=== PATIENT | male | born 1980 | race Caucasian/White ===

== ENCOUNTER 2016-06-01 21:17 | Emergency (ER) | payer BC, OTHER ==
[~2016-06-01] VITALS: Ht 172.7 cm; Wt 114.6 kg
[~2016-06-01 21:17] MED LIST: ZLF/50 PO
[2016-06-01 21:24] VITALS: TEMP 37.2; Ht 172.7 cm; Wt 114.6 kg
[2016-06-01] MEDS ORDERED: SODIUM CHLORIDE 0.9% 1000ML 1,000 ML IV STA (21:55)
[2016-06-01] MEDS ORDERED: KETOROLAC TROMETHAMINE 30 MG/ML VIAL IV STA (21:55)
[2016-06-01] MEDS ORDERED: OPTIRAY 320 IV PRN (22:00)
[2016-06-01] MEDS ORDERED: AMPICILLIN/SULBACTAM SOD INJ 3,000 MG in SODIUM CHLORIDE 0.9% 100ML 100 ML IV ONE (22:00)
[2016-06-01] MEDS ORDERED: DEXAMETHASONE SOD INJ 10 MG/ML VIAL IV ONE (22:00)
[2016-06-01 22:48] LABS: BASO % 0.2 %; BASO ABS # 0.03 K/uL (0-0.2); COMPLETE YES; EOS % 3.4 %; HEMATOCRIT 46.2 % (42-52); IG% 0.8 %; LYMPH % 22.2 %; LYMPH ABS # 2.83 K/uL (1.2-3.4); MEAN CORPUSCULAR HEMOGLOBIN 31.6 pg (25-34); MEAN CORPUSCULAR HGB CONC 35.9 g/dl (32-36); MEAN PLATELET VOLUME 10.1 fL (7.4-10.4); MONO % 8.4 %; PLATELET COUNT 187 K/uL (130-400); RED BLOOD COUNT 5.25 M/uL (4.7-6.1); WHITE BLOOD COUNT 12.75 K/uL (4.8-10.8)
[2016-06-01 23:03] LABS: BUN/CREATININE RATIO 10.9 (10-20); CALCIUM 8.3 mg/dl (8.5-10.1); CREATININE 0.95 mg/dl (0.60-1.40); POTASSIUM 3.8 mmol/L (3.5-5.1)
[2016-06-01 23:03] LABS: ISTAT CREATININE 0.8 mg/dl (0.6-1.3); ISTAT HEMOGLOBIN 16.3 g/dl (14.0-18.0); ISTAT IONIZED CALCIUM 1.06 mmol/l (1.12-1.32)
[2016-06-02] MEDS ORDERED: AMOX875T PO (00:44)
[2016-06-02] MEDS ORDERED: PRED50TA PO (00:44)
[2016-06-02 00:57] VITALS: BP 153/93; PULSE 79; O2SAT 95
[2016-06-02] MEDS ORDERED: AMOXICIL/CLAVU 875MG HOME PACK PO ONE (01:00)
--- NOTE | 2016-06-02 01:14 | EMERGENCY ROOM VISIT NOTE ---
History First contact with patient: 21:47 Chief Complaint: FACIAL PAIN/INJURY Stated Complaint: RIGHT JAW SWELLED History of Present Illness The patient is a 35 year old male who presents to the Emergency Room with complaints of sinus pain and congestion with right-sided facial swelling for the past few days. Patient states he recently saw the dentist and the dentist stated his teeth were fine. Patient does chew tobacco. Patient denies chest pain, dyspnea, neck stiffness, headache, inner ear pain, cough, congestion, abdominal pain, fever, chills. He is tolerating by mouth fluids and food. No recent antibiotics. Review of Systems See HPI for pertinent positives & negatives. A total of 10 systems reviewed and were otherwise negative. Past Medical/Surgical History Medical Problems: (1) Anxiety (2) Asthma (3) Back pain, acute (4) Back pain, acute (5) Kidney stone (6) Pneumonia (7) Sinusitis (8) Sore throat (9) Throat discomfort (10) Throat discomfort Family History FHx: celiac disease Hypertension Social History Smoking Status: Never Smoker Alcohol Use: occasionally Drug Use: none Marital Status: Housing Status: lives with family Occupation Status: employed Current/Historical Medications Scheduled Amoxicillin & Pot Clavulanate (Augmentin 875-125 mg), 1 TAB PO BID Prednisone (Prednisone), 50 MG PO DAILY Sertraline HCl (Sertraline HCl), 50 MG PO DAILY Allergies Coded Allergies: Doxycycline (Verified Allergy, Unknown, ANXIETY, 09/16/15) Physical Exam Vital Signs Date Time Temp Pulse Resp B/P Pulse Ox O2 Delivery O2 Flow Rate FiO2 06/01/16 23:00 94 16 154/89 98 Room Air 06/01/16 21:24 37.2 98 18 162/90 96 Room Air Physical Exam VITALS: Vitals are noted on the nurse's note and reviewed by myself. Vital signs stable. GENERAL: Pleasant male, in no acute distress, nondiaphoretic, well-developed well-nourished. SKIN: The skin was without rashes, erythema, edema, or bruising. There is no tenting of the skin. Capillary reflex less than 2 seconds. HEAD: Normocephalic atraumatic. EARS: External auditory canals clear, tympanic membranes pearly hillman without erythema or effusion bilaterally. EYES: Pupils equal round and reactive to light and accommodation. Conjunctivae without injection, sclerae without icterus. Extraocular movements intact. NOSE: Patent, turbinates without inflammation or discharge. Right maxillary sinus tenderness. Face: Right-sided face slightly edematous. Dental exam: No palpable abscess. No Sd angina MOUTH: Mucous membranes moist. Pharynx without erythema or exudate. Uvula midline. Airway patent. Tongue does not deviate. NECK: Supple without nuchal rigidity. No lymphadenopathy. No thyromegaly. Cervical spine is nontender. No JVD. No signs of meningitis HEART: Regular rate and rhythm without murmurs gallops or rubs. LUNGS: Clear to auscultation bilaterally without wheezes, rales or rhonchi. No dullness to percussion. No retractions or accessory muscle use. ABDOMEN: Positive bowel sounds x 4. Normal tympanic percussion. Soft, nontender, without masses or organomegaly. Smith sign negative. No guarding or rebound tenderness. MUSCULOSKELETAL: No muscle atrophy, erythema, or edema noted. NEURO: Patient was alert and oriented to person place and time. Normal sensation to light and sharp touch. No focal neurological deficits. Medical Decision & Procedures Laboratory Results 06/01/16 22:39 Red Blood Count 5.25, Mean Corpuscular Volume 88.0, Mean Corpuscular Hemoglobin 31.6, Mean Corpuscular Hemoglobin Concent 35.9, Mean Platelet Volume 10.1, Neutrophils (%) (Auto) 65.0, Lymphocytes (%) (Auto) 22.2, Monocytes (%) (Auto) 8.4, Eosinophils (%) (Auto) 3.4, Basophils (%) (Auto) 0.2, Neutrophils # (Auto) 8.29, Lymphocytes # (Auto) 2.83, Monocytes # (Auto) 1.07, Eosinophils # (Auto) 0.43, Basophils # (Auto) 0.03 06/01/16 22:39 Test 06/01/16 22:39 06/01/16 22:50 White Blood Count 12.75 K/uL (4.8-10.8) Red Blood Count 5.25 M/uL (4.7-6.1) Hemoglobin 16.6 g/dL (14.0-18.0) Hematocrit 46.2 % (42-52) Mean Corpuscular Volume 88.0 fL (80-100) Mean Corpuscular Hemoglobin 31.6 pg (25-34) Mean Corpuscular Hemoglobin Concent 35.9 g/dl (32-36) Platelet Count 187 K/uL (130-400) Mean Platelet Volume 10.1 fL (7.4-10.4) Neutrophils (%) (Auto) 65.0 % Lymphocytes (%) (Auto) 22.2 % Monocytes (%) (Auto) 8.4 % Eosinophils (%) (Auto) 3.4 % Basophils (%) (Auto) 0.2 % Neutrophils # (Auto) 8.29 K/uL (1.4-6.5) Lymphocytes # (Auto) 2.83 K/uL (1.2-3.4) Monocytes # (Auto) 1.07 K/uL (0.11-0.59) Eosinophils # (Auto) 0.43 K/uL (0-0.5) Basophils # (Auto) 0.03 K/uL (0-0.2) RDW Standard Deviation 42.4 fL (36.4-46.3) RDW Coefficient of Variation 13.1 % (11.5-14.5) Immature Granulocyte % (Auto) 0.8 % Immature Granulocyte # (Auto) 0.10 K/uL (0.00-0.02) Est Creatinine Clear Calc Drug Dose 130.8 ml/min Estimated GFR () 118.0 Estimated GFR (Non- 101.9 BUN/Creatinine Ratio 10.9 (10-20) Calcium Level 8.3 mg/dl (8.5-10.1) Amylase Level 44 U/L (25-115) Bedside Hemoglobin 16.3 g/dl (14.0-18.0) Bedside Hematocrit 48 % (42-52) Bedside Sodium 142 mEq/L (135-144) Bedside Potassium 3.8 mEq/L (3.3-5.0) Bedside Chloride 98 mEq/L (101-112) Bedside Total CO2 27 mEq/l (24-31) Anion Gap 22.0 mmol/L (16-25) Bedside Blood Urea Nitrogen 11 mg/dl (7-18) Bedside Creatinine 0.8 mg/dl (0.6-1.3) Bedside Glucose (other) 134 mg/dl (70-99) Bedside Ionized Calcium (Keith) 1.06 mmol/l (1.12-1.32) Medications Administered Medications (Trade) Dose Ordered Sig/Nini Route Start Time Stop Time Status Last Admin Dose Admin Ampicillin Sodium/ Sulbactam Sodium/ Sodium Chloride (Unasyn Inj/Nss 100ml) 108 ml @ 200 mls/hr ONE ONCE IV 06/01/16 22:00 06/01/16 22:32 DC 06/01/16 22:35 200 MLS/HR Ketorolac Tromethamine (Toradol Inj) 30 mg NOW STAT IV 06/01/16 21:55 06/01/16 21:57 DC 06/01/16 22:36 30 MG Dexamethasone Sodium Phosphate 10 mg 10 mg NOW ONCE IV 06/01/16 22:00 06/01/16 22:01 DC 06/01/16 22:36 10 MG Sodium Chloride (Nss 1000ml) 1,000 ml @ 999 mls/hr Q1H1M STAT IV 06/01/16 21:55 06/01/16 22:55 DC 06/01/16 22:36 999 MLS/HR Amoxicillin/ Clavulanate Potassium (Augmentin 875MG Home Pack) 1 homepack UD ONCE PO 06/02/16 01:00 06/02/16 01:01 DC 06/02/16 00:54 1 HOMEPACK ED Course Prior records reviewed and summarized as above. Triage Nursing notes reviewed. Additional history obtained from family The patient's history was concerning for facial pain and congestion. Differential diagnosis: Etiologies such as parotitis, salivary stone, dental infection, cellulitis, abscess, MRSA infection, as well as others were entertained.. Physical examination: Patient is alert, and well-appearing. No signs of meningitis ER treatment provided: Unasyn, Decadron On reassessment the patient felt better. Diagnostics interpreted by me: The labs revealed leukocytosis, no worrisome electrolyte abnormality Imaging studies: CT FACIAL: No drainable fluid collection. Paranasal sinus disease involving the right maxillary and sphenoid sinuses, and ethmoid air cells. Correlate for acute sinusitis. Osseous structures are unremarkable. Radiologist: Regis Hall MD This appears to be isolated sinusitis. Patient was started on antibiotics. No signs of meningitis. No Sd angina. He was advised take medications as directed and to follow-up with family care in a few days or here in the ER sooner for high fevers, neck stiffness, confusion, worsening signs or symptoms or as needed. By the evaluation outlined above emergent etiologies such as abscess, parotitis , Sd angina, as well as others were deemed relatively unlikely. The pt informed about the findings as listed above. All questions were answered and pleased with the treatment. Return instructions were outlined and the patient was discharged in stable condition. Outpatient prescription management: Augmentin, prednisone Referral: The patient was referred back to primary care physician for follow-up in 2 to 3 days for a recheck of the current condition. Medical Decision As above Impression Primary Impression: Sinusitis, acute Departure Information Prescriptions Prednisone (Prednisone) 50 Mg Tab 50 MG PO DAILY for 4 Days, #4 TAB Prov: Claudia Adam .MICHAEL 06/02/16 Amoxicillin & Pot Clavulanate (Augmentin 875-125 mg) 1 Tab Tab 1 TAB PO BID for 9 Days, #18 TAB Prov: Claudia Adam PA-C 06/02/16 Referrals Georges Sharma M.D. (PCP) Patient Instructions My [facility] Problem Qualifiers Primary Impression: Sinusitis, acute Sinusitis location: maxillary Recurrence: non-recurrent Qualified Codes: J01.00 - Acute maxillary sinusitis, unspecified
--- NOTE | 2016-06-02 07:23 | DIAGNOSTIC IMAGING REPORT ---
FACIAL-MAXILLOFACIAL CT WITH INTRAVENOUS CONTRAST HISTORY: right jaw/face swelling, ? Parotitis/stone/abscess TECHNIQUE: Multiaxial CT images the maxillary fissure region were performed reformatted in the coronal plane following the use of intravenous contrast. COMPARISON STUDY: None. FINDINGS: The visualized brain parenchyma and orbits are unremarkable. The parotid and submandibular glands are symmetric. There is no upper cervical lymphadenopathy. Prevertebral soft tissues and the epiglottis are normal in thickness. No loculated fluid collections to suggest an abscess. The parotid gland ducts are normal in course and caliber. There are no sialoliths identified. Partial opacification of the ethmoid air cells and a retention cyst within the right sphenoid sinus. Fluid level resulting in partial opacification of the right maxillary sinus. IMPRESSION: 1. Acute right maxillary sinusitis. 2. No loculated fluid collections to suggest an abscess. 3. The parotid glands are within normal limits. Electronically signed by: Pravin Jones M.D. 06/02/2016 7:22 AM Dictated Date/Time: 06/02/2016 7:18 AM
== END 2016-06-02 00:57 | disposition home or self-care (01) ==
LOC: C.EDB 21:19
DX: J01.00 Acute maxillary sinusitis, unspecified (principal); F41.9 Anxiety disorder, unspecified; J45.909 Unspecified asthma, uncomplicated; Z87.442 Personal history of urinary calculi; Z83.79 Family history of other diseases of the digestive system; Z82.49 Family history of ischemic heart disease and other diseases of the circulatory system; Z79.899 Other long term (current) drug therapy

== ENCOUNTER 2016-06-16 13:39 | Emergency (ER) | payer BC, OTHER ==
[~2016-06-16] VITALS: Ht 172.7 cm; Wt 110.0 kg
[2016-06-16 13:53] VITALS: TEMP 36.4; Ht 172.7 cm; Wt 110.0 kg
[2016-06-16] MEDS ORDERED: CYCL5TAB PO (14:10)
[2016-06-16] MEDS ORDERED: KETOROLAC TROMETHAMINE 60 MG/2 ML VIAL IM STA (14:26)
[2016-06-16] MEDS ORDERED: HYDR-5688 PO (14:45)
--- NOTE | 2016-06-16 14:49 | EMERGENCY ROOM VISIT NOTE ---
ED Visit Note First contact with patient: 13:58 CHIEF COMPLAINT: Right low back pain after injury this morning HISTORY OF PRESENT INJURY: Patient is a 35-year-old white male who presents emergency department for evaluation of right low back pain that began acutely this morning after he was moving firewood. He states that he was lifting, twisting and throwing firewood early this morning, when he fell an acute pull in his right low back. He took Flexeril, which helped with his discomfort slightly. He states that he feels better when he obeys flat, and worse when he is up right and walking. The pain is located along the right side of his spine in the low back and does not radiate to the buttocks into the legs. He rates his discomfort and 8/10. No numbness or weakness of the extremities. REVIEW OF SYSTEMS: Review of systems as per HPI. All other systems reviewed were negative. At least 6 systems reviewed. PMH: Electronic medical records are reviewed and summarized as above/below. See Problem List. SOCIAL HISTORY: Patient lives at home with his family. Nonsmoker. PHYSICAL EXAM: Vital Signs: Reviewed Nurse's notes. CONSTITUTIONAL: Patient is who is awake and alert and laying supine on the gurney in no acute distress. CARDIOVASCULAR: Regular rate and rhythm, with normal S1 and S2, no murmur or gallop or rub is heard. No carotid bruits auscultated. No JVD. Peripheral pulses easily palpable. RESPIRATORY: Breath sounds equal and clear to auscultation without wheezes, rales, or rhonchi heard. Full and equal chest expansion without accessory muscle use or retractions. ABDOMEN: Bowel sounds are present. Abdomen is soft, nontender and nondistended. INTEGUMENTARY: No lesions or rash, normal skin turgor. LYMPH: No lymphadenopathy. SPINE: Examination of the patient's back does not demonstrate any ecchymosis, abrasions or outward signs of trauma. No erythema, increased warmth or induration. Patient has no midline discomfort to palpation over the low lumbar spine, has reproducible discomfort in the right paraspinous musculature. There is no pain over the SI joint or the sciatic notch. He has increased pain with range of motion including rotation and flexion. EXTREMITIES: Leg lengths are symmetrical. Negative logroll bilaterally. Normal strength including dorsi-flexion and plantar flexion of the great toes and ankles and flexion and extension of the knees and flexion of the hips. Negative bilateral straight leg raise testing. Lower extremity DTRs are equal and symmetrical bilaterally. Distal pulses are easily palpable. Sensation light touch is intact over the lower extremities bilaterally. EMERGENCY DEPARTMENT COURSE: Patient was seen and assessed as above. He was medicated with Toradol 60 mg IM. His mechanism is consistent with a lumbar strain. I do not suspect fracture and therefore it was not felt that radiographs would be of any benefit. The patient was encouraged to continue his Flexeril and to use an NSAID such as ibuprofen for discomfort. He was given a small prescription for [place] to use for pain. Problem List Medical Problems: (1) Anxiety Status: Chronic (2) Asthma Status: Chronic (3) Back pain, acute Status: Resolved (4) Back pain, acute Status: Resolved (5) Kidney stone Status: Resolved (6) Pneumonia Status: Resolved (7) Sinusitis Status: Resolved (8) Sore throat Status: Resolved (9) Throat discomfort Status: Resolved (10) Throat discomfort Status: Resolved Current/Historical Medications Scheduled Cyclobenzaprine Hcl (Flexeril), 5 MG PO UD Sertraline HCl (Sertraline HCl), 50 MG PO DAILY Scheduled PRN Hydrocodone/Acetaminophen 5MG/325MG ([place] 5MG/325MG), 1-2 TABLETS PO Q4 PRN for Pain Allergies Coded Allergies: Doxycycline (Verified Allergy, Unknown, ANXIETY, 06/16/16) Vital Signs Date Time Temp Pulse Resp B/P Pulse Ox O2 Delivery O2 Flow Rate FiO2 06/16/16 14:57 71 135/73 95 Room Air 06/16/16 13:53 36.4 83 20 109/70 96 Room Air Medications Administered Medications (Trade) Dose Ordered Sig/Nini Route Start Time Stop Time Status Last Admin Dose Admin Ketorolac Tromethamine (Toradol Inj) 60 mg NOW STAT IM 06/16/16 14:26 06/16/16 14:27 DC 06/16/16 14:38 60 MG Departure Information Impression Primary Impression: Strain of lumbar region Prescriptions Hydrocodone/Acetaminophen 5MG/325MG ([place] 5MG/325MG) Tab 1-2 TABLETS PO Q4 Y for Pain, #15 TAB For Initial Treatment Prov: Susi Orozco PA 06/16/16 Referrals Georges Sharma M.D. (PCP) Patient Instructions My [facility] Additional Instructions Hydrocodone/Acetaminophen ([place]) 5/325 mg: Take 1-2 pills every four hours for breakthrough pain. Avoid alcohol, operating machinery or dangerous equipment, working on ladders or roofs, DRIVING, or situations where being under the influence may be dangerous. It is recommended to use an [id number] stool softener such as Colace, 100mg twice daily while taking this medication to avoid constipation. May continue your Flexeril if needed. Ibuprofen(Motrin, Advil) may be used for fever or pain. Use 600mg every six hours as needed. Take with food. Avoid using more than 2400mg in a 24 hour period. Do not use 2400mg per day for more than three consecutive days without physician direction. Prolonged inappropriate use can lead to stomach upset or ulcers. This medication can be taken if you need to drive, work, or perform activities which may be dangerous when taking narcotic pain medication. (AND/OR) Acetaminophen(Tylenol) may be used for fever or pain. Use 1000mg every six hours as needed. Avoid using more than 3000mg in a 24 hour period. This medication can be taken if you need to drive, work, or perform activities which may be dangerous when taking narcotic pain medication. Rest and avoid heavy lifting until your symptoms resolve and then gradually return to full activity. A good rule of thumb is if it hurts your back to perform a certain activity, then it should be avoided until you are healthy again. A heating pad, warm compresses, or a hot shower may help with tight muscles and can be done several times a day as needed. Continue current medications. Return to the ER immediately for any numbness, tingling, severe pain, loss of control of your bowels or bladder, inability to walk, or as needed. Follow up with your primary care physician within 3-5 days for a recheck of your current condition. Problem Qualifiers Primary Impression: Strain of lumbar region Encounter type: initial encounter Qualified Codes: S39.012A - Strain of muscle, fascia and tendon of lower back, initial encounter
[2016-06-16 14:57] VITALS: BP 135/73; PULSE 71; O2SAT 95
== END 2016-06-16 15:00 | disposition home or self-care (01) ==
LOC: C.EDB 13:40 → C.EDD 15:00
DX: S39.012A Strain of muscle, fascia and tendon of lower back, initial encounter (principal); X50.0XXA Overexertion from strenuous movement or load, initial encounter; Y93.89 Activity, other specified; F41.9 Anxiety disorder, unspecified; J45.909 Unspecified asthma, uncomplicated; Z87.442 Personal history of urinary calculi; Z87.01 Personal history of pneumonia (recurrent); Z79.899 Other long term (current) drug therapy

== ENCOUNTER → 2016-07-23 | Outpatient (CLI) | payer BC, OTHER ==
[~2016-07-23] MED LIST changes: +CYCL5TAB PO; +HYDR-5688 PO
[2016-07-23 16:41] LABS: BASO % 0.3 %; BASO ABS # 0.03 K/uL (0-0.2); COMPLETE YES; EOS % 2.7 %; HEMATOCRIT 49.5 % (42-52); IG% 0.4 %; LYMPH % 28.8 %; LYMPH ABS # 2.88 K/uL (1.2-3.4); MEAN CELL VOLUME 89.4 fL (80-100); MEAN CORPUSCULAR HEMOGLOBIN 30.1 pg (25-34); MEAN CORPUSCULAR HGB CONC 33.7 g/dl (32-36); MEAN PLATELET VOLUME 10.2 fL (7.4-10.4); MONO % 7.5 %; NEUT % 60.3 %; PLATELET COUNT 184 K/uL (130-400); RED BLOOD COUNT 5.54 M/uL (4.7-6.1); WHITE BLOOD COUNT 9.99 K/uL (4.8-10.8)
[2016-07-23 16:53] LABS: ALT/SGPT 159 U/L (12-78); AST/SGOT 95 U/L (15-37); BLOOD UREA NITROGEN 13 mg/dl (7-18); BUN/CREATININE RATIO 13.5 (10-20); CALCIUM 8.2 mg/dl (8.5-10.1); CARBON DIOXIDE 30 mmol/L (21-32); CHLORIDE 104 mmol/L (98-107); CREATININE 0.95 mg/dl (0.60-1.40); GLUCOSE 119 mg/dl (70-99); POTASSIUM 4.3 mmol/L (3.5-5.1); SODIUM 142 mmol/L (136-145)
[2016-07-23 17:04] LABS: ALB/GLOB RATIO 1.2 (0.9-2); ALKALINE PHOSPHATASE 87 U/L (45-117)
[2016-07-24 07:34] LABS: ESTIMATED AVERAGE GLUCOSE 143 mg/dl; HA1C FLAG Normal (Normal)
== END | disposition home or self-care (01) ==
LOC: C.LABBFT 11:29
PROVIDERS: ATTEND Physician Assistant Medical
DX: R73.9 Hyperglycemia, unspecified (principal)

== ENCOUNTER → 2016-07-27 | Outpatient (CLI) | payer BC, OTHER ==
--- NOTE | 2016-07-27 10:11 | DIAGNOSTIC IMAGING REPORT ---
RENAL ULTRASOUND HISTORY: Nephrocalcinosis. Renal cyst. N28.1 Cyst of kidney, [id number] COMPARISON: 05/15/2013, 05/18/2013. FINDINGS: Right kidney: Maximum dimension 11.8 cm. No evidence for hydronephrosis. 4 x 3 cm mid pole cyst. Normal corticomedullary differentiation and cortical thickness. Left kidney: Maximum dimension 12.7 cm. No evidence for hydronephrosis. Normal corticomedullary differentiation and cortical thickness. Bladder: No bladder wall thickening. The bilateral ureteral jets were identified. IMPRESSION: Right renal cyst measuring 4 x 3 cm. Otherwise negative study Electronically signed by: Sohail Lopez M.D. 07/27/2016 10:10 AM Dictated Date/Time: 07/27/2016 10:07 AM
== END | disposition home or self-care (01) ==
LOC: C.ULTR 09:39
PROVIDERS: ATTEND Urology
DX: N28.1 Cyst of kidney, acquired (principal); N20.0 Calculus of kidney

== ENCOUNTER → 2016-08-06 | Outpatient (CLI) | payer BC, OTHER ==
--- NOTE | 2016-08-06 11:33 | DIAGNOSTIC IMAGING REPORT ---
Right upper quadrant ultrasound (LIVER) ABDOMEN LIMITED CLINICAL HISTORY: R79.89 Abnormal liver function [id number] abnormal liver function tests TECHNIQUE: Ultrasound COMPARISON STUDY: 07/27/2016 FINDINGS: Fatty infiltration of liver. Normal gallbladder. Common bile duct 5 mm. Pancreas and right kidney unremarkable. Unchanged 4 cm right renal cyst. No evidence for hydronephrosis. IMPRESSION: 1. Fatty infiltration of liver. 2. Stable right renal cyst. 3. Otherwise negative study Electronically signed by: Sohail Lopez M.D. 08/06/2016 11:31 AM Dictated Date/Time: 08/06/2016 11:30 AM
== END | disposition home or self-care (01) ==
LOC: C.ULTR 10:38
PROVIDERS: ATTEND Internal Medicine
DX: R79.89 Other specified abnormal findings of blood chemistry (principal); K76.0 Fatty (change of) liver, not elsewhere classified; N28.1 Cyst of kidney, acquired

== ENCOUNTER → 2016-09-24 | Outpatient (CLI) | payer OTHER ==
[2016-09-24 13:15] LABS: HEPATITIS B AB POS
[2016-09-24 13:18] LABS: ALKALINE PHOSPHATASE 76 U/L (45-117); ALT/SGPT 145 U/L (12-78); AST/SGOT 78 U/L (15-37); CHOLESTEROL 156 mg/dl (0-200); CHOLESTEROL/HDL RATIO 4.7; FERRITIN 547.5 ng/ml (8.0-388.0); HDL CHOLESTEROL 33 mg/dl; LDL CHOLESTEROL CALCULATED 86 mg/dl; TRIGLYCERIDES 185 mg/dl (0-150); VERY LOW DENSITY LIPOPROT CALC 37 mg/dl
[2016-09-27 13:42] LABS: ALPHA-1-ANTITRYPSIN TC 67710E 133 MG/DL (83-199)
== END | disposition home or self-care (01) ==
LOC: C.LABBFT 07:47
PROVIDERS: ATTEND Internal Medicine
DX: R79.89 Other specified abnormal findings of blood chemistry (principal); E11.65 Type 2 diabetes mellitus with hyperglycemia

== ENCOUNTER → 2016-09-28 | Outpatient (CLI) | payer OTHER ==
[2016-09-28 13:01] LABS: TOTAL IRON BINDING CAPACITY 376 mcg/dl (250-450)
== END | disposition home or self-care (01) ==
LOC: C.LAB1850 09:47
PROVIDERS: ATTEND Registered Nurse
DX: R79.89 Other specified abnormal findings of blood chemistry (principal)

== ENCOUNTER → 2017-02-03 | Outpatient (CLI) | payer OTHER ==
[~2017-02-03] MED LIST changes: -HYDR-5688 PO
== END | disposition home or self-care (01) ==
LOC: C.LABBFT 08:01
PROVIDERS: ATTEND Physician Assistant Medical
DX: K76.0 Fatty (change of) liver, not elsewhere classified (principal); E11.65 Type 2 diabetes mellitus with hyperglycemia

== ENCOUNTER → 2017-07-22 | Outpatient (CLI) | payer OTHER ==
--- NOTE | 2017-07-22 16:52 | DIAGNOSTIC IMAGING REPORT ---
KUB HISTORY: Follow-up study in a patient with history of nephrolithiasis N28.1 Renal cyst, acquired COMPARISON: KUB 07/22/2015 FINDINGS: The bowel gas pattern is non-obstructive. There is no organomegaly. No renal calculi. No ureteral calculi. Renal shadows are partially obscured by bowel gas. No pneumoperitoneum or pneumatosis. No fracture. Mild marginal spurring about the hips. Round calcifications of the right hemipelvis suggest phleboliths. IMPRESSION: 1. Nonobstructive bowel gas pattern. 2. No renal or ureteral stones. Electronically signed by: Aden Willams M.D. 07/22/2017 4:50 PM Dictated Date/Time: 07/22/2017 4:49 PM
== END | disposition home or self-care (01) ==
LOC: C.RAD 16:19
PROVIDERS: ATTEND Urology
DX: N28.1 Cyst of kidney, acquired (principal)

== ENCOUNTER 2017-07-28 19:49 | Emergency (ER) | payer OTHER ==
[~2017-07-28] VITALS: Ht 172.7 cm; Wt 110.4 kg
[2017-07-28 19:51] VITALS: TEMP 37.8; Ht 172.7 cm; Wt 110.4 kg
[2017-07-28] MEDS ORDERED: ALBUT/IPRATROP 3MG/0.5MG NEB 3 ML VIAL INH STA (20:35)
[2017-07-28] MEDS ORDERED: ACETAMINOPHEN 500 MG TAB PO STA (20:35)
[2017-07-28] MEDS ORDERED: KETOROLAC TROMETHAMINE 30 MG/ML VIAL IV STA (20:35)
[2017-07-28] MEDS ORDERED: BENZONATATE 100MG CAP PO ONE (20:45)
[2017-07-28] MEDS ORDERED: METF500T5 PO (21:00)
--- NOTE | 2017-07-28 21:07 | EMERGENCY ROOM VISIT NOTE ---
History Report prepared by Noemy: Madelin Castillo Under the Supervision of: Dr. Jose Carlos Royal M.D. First contact with patient: 20:17 Chief Complaint: COUGH Stated Complaint: COUGH,FEVER,SOB History of Present Illness The patient is a 36 year old white male with a past medical history of anxiety, asthma, kidney stone, pneumonia, sinusitis who presents to the ED with a cc of persistent cough beginning 2 days ago. Positive coughing up yellow sputum, sinus congestion, fever, SOB with exertion. Negative nausea, vomiting, abdominal pain, leg pain. His children have been sick recently and the youngest has croup. He does not smoke. Source of History: patient Onset: 2 days ago Position: chest Quality: other (cough) Timing: other (persistent) Associated Symptoms: + fevers, + SOB, No nausea, No vomiting, No abdominal pain Note: Pt reports sinus congestion. Review of Systems See HPI for pertinent positives and negatives. A total of ten systems were reviewed and were otherwise negative. Past Medical & Surgical Medical Problems: (1) Anxiety (2) Asthma (3) Back pain, acute (4) Back pain, acute (5) Kidney stone (6) Pneumonia (7) Sinusitis (8) Sore throat (9) Throat discomfort (10) Throat discomfort Family History FHx: celiac disease Hypertension Social History Smoking Status: Never Smoker Alcohol Use: occasionally Drug Use: none Marital Status: Housing Status: lives with family Occupation Status: employed Current/Historical Medications Scheduled Azithromycin (Zithromax), 250 MG PO DAILY Metformin Hcl Er (Glucophage Er), 500 MG PO DAILY Sertraline HCl (Sertraline HCl), 50 MG PO DAILY Allergies Coded Allergies: Doxycycline (Verified Allergy, Unknown, ANXIETY, 06/16/16) Physical Exam Vital Signs Date Time Temp Pulse Resp B/P (MAP) Pulse Ox O2 Delivery O2 Flow Rate FiO2 07/28/17 22:16 84 18 120/72 93 Room Air 07/28/17 22:16 Room Air 07/28/17 21:28 102 18 119/76 92 Room Air 07/28/17 21:19 104 07/28/17 20:50 Room Air 07/28/17 19:51 37.8 102 18 123/80 92 Room Air Physical Exam GENERAL: Awake, alert, well-appearing, NAD, obese HENT: Normocephalic, atraumatic. EYES: Normal conjunctiva. Sclera non-icteric. PERRL. No anisocoria. NECK: Supple. No nuchal rigidity. FROM. RESPIRATORY: Trace wheezing in left base. CARDIAC: RRR, no MRG ABDOMEN: Soft, NTND, BS+ MSK: No chest wall TTP, no calf pain, no LE edema, negative Homans b/l. NEURO: GCS 15, CN 2-12 intact, moves all 4s on command SKIN: No rash or jaundice noted. Medical Decision & Procedures ER Provider Diagnostic Interpretation: Radiology results as stated below per my review and radiologist interpretation: CHEST ONE VIEW PORTABLE HISTORY: 36 years-old Male EVALUATE RESPIRATORY DISTRESS.DYSPNEA acute respiratory distress COMPARISON: Chest radiograph 05/23/2013 TECHNIQUE: Portable AP view of the chest FINDINGS: Cardiomediastinal and hilar silhouettes are within normal limits. No pneumothorax, pleural effusion, focal airspace consolidation or overt pulmonary edema. Bones appear grossly intact. IMPRESSION: No acute process. The above report was generated using voice recognition software. It may contain grammatical, syntax or spelling errors. Electronically signed by: Aden Willams M.D. 07/28/2017 9:27 PM Dictated Date/Time: 07/28/2017 9:26 PM Laboratory Results 07/28/17 21:05 Red Blood Count 5.27, Mean Corpuscular Volume 87.5, Mean Corpuscular Hemoglobin 31.3, Mean Corpuscular Hemoglobin Concent 35.8, Mean Platelet Volume 9.6, Neutrophils (%) (Auto) 66.5, Lymphocytes (%) (Auto) 22.0, Monocytes (%) (Auto) 8.4, Eosinophils (%) (Auto) 2.6, Basophils (%) (Auto) 0.2, Neutrophils # (Auto) 10.23, Lymphocytes # (Auto) 3.38, Monocytes # (Auto) 1.30, Eosinophils # (Auto) 0.40, Basophils # (Auto) 0.03 07/28/17 21:05 Test 07/28/17 21:05 White Blood Count 15.39 K/uL (4.8-10.8) Red Blood Count 5.27 M/uL (4.7-6.1) Hemoglobin 16.5 g/dL (14.0-18.0) Hematocrit 46.1 % (42-52) Mean Corpuscular Volume 87.5 fL (80-100) Mean Corpuscular Hemoglobin 31.3 pg (25-34) Mean Corpuscular Hemoglobin Concent 35.8 g/dl (32-36) Platelet Count 170 K/uL (130-400) Mean Platelet Volume 9.6 fL (7.4-10.4) Neutrophils (%) (Auto) 66.5 % Lymphocytes (%) (Auto) 22.0 % Monocytes (%) (Auto) 8.4 % Eosinophils (%) (Auto) 2.6 % Basophils (%) (Auto) 0.2 % Neutrophils # (Auto) 10.23 K/uL (1.4-6.5) Lymphocytes # (Auto) 3.38 K/uL (1.2-3.4) Monocytes # (Auto) 1.30 K/uL (0.11-0.59) Eosinophils # (Auto) 0.40 K/uL (0-0.5) Basophils # (Auto) 0.03 K/uL (0-0.2) RDW Standard Deviation 41.0 fL (36.4-46.3) RDW Coefficient of Variation 12.8 % (11.5-14.5) Immature Granulocyte % (Auto) 0.3 % Immature Granulocyte # (Auto) 0.05 K/uL (0.00-0.02) Prothrombin Time 11.6 SECONDS (9.0-12.0) Prothromb Time International Ratio 1.1 (0.9-1.1) Activated Partial Thromboplast Time 27.8 SECONDS (21.0-31.0) Partial Thromboplastin Ratio 1.1 Anion Gap 8.0 mmol/L (3-11) Est Creatinine Clear Calc Drug Dose 110.7 ml/min Estimated GFR () 99.3 Estimated GFR (Non- 85.6 BUN/Creatinine Ratio 12.8 (10-20) Calcium Level 8.1 mg/dl (8.5-10.1) Total Bilirubin 1.1 mg/dl (0.2-1) Aspartate Amino Transf (AST/SGOT) 47 U/L (15-37) Alanine Aminotransferase (ALT/SGPT) 104 U/L (12-78) Alkaline Phosphatase 65 U/L (45-117) Troponin I < 0.015 ng/ml (0-0.045) Pro-B-Type Natriuretic Peptide 131 pg/ml (0-450) Total Protein 8.1 gm/dl (6.4-8.2) Albumin 4.2 gm/dl (3.4-5.0) Globulin 3.9 gm/dl (2.5-4.0) Albumin/Globulin Ratio 1.1 (0.9-2) Laboratory results reviewed by me Medications Administered Medications (Trade) Dose Ordered Sig/Nini Route Start Time Stop Time Status Last Admin Dose Admin Acetaminophen (Tylenol Tab) 1,000 mg NOW STAT PO 07/28/17 20:35 07/28/17 20:37 DC 07/28/17 21:29 1,000 MG Ketorolac Tromethamine (Toradol Inj) 30 mg NOW STAT IV 07/28/17 20:35 07/28/17 20:37 DC 07/28/17 20:35 30 MG Albuterol/ Ipratropium (Duoneb) 3 ml ONE STAT INH 07/28/17 20:35 07/28/17 20:37 DC 07/28/17 21:00 3 ML Benzonatate (Tessalon Perles Cap) 100 mg NOW ONCE PO 07/28/17 20:45 07/28/17 20:46 DC 07/28/17 21:29 100 MG Albuterol (Ventolin Hfa Inhaler) 2 puffs NOW ONCE INH 07/28/17 22:15 07/28/17 22:16 DC 07/28/17 22:16 2 PUFFS Azithromycin (Zithromax Tab) 500 mg NOW ONCE PO 07/28/17 22:30 07/28/17 22:31 DC 07/28/17 22:39 500 MG ECG Per My Interpretation Indication: SOB/dyspnea Rate (beats per minute): 98 Rhythm: normal sinus Findings: other (normal intervals, normal axis, no STS changes or TWI) ED Course 2022: The patient was evaluated in room C6. A complete history and physical exam was performed. 2155: I reevaluated the patient. Discussed results and discharge instructions: He verbalized understanding and agreement. The patient is ready for discharge. Medical Decision Nursing notes reviewed. Ancillary studies and prior records reviewed. The patient is a 36 year old white male with a past medical history of anxiety, asthma, kidney stone, pneumonia, sinusitis who presents to the ED with a cc of persistent cough beginning 2 days ago. Differential diagnosis: Etiologies such as infections, reactive airway disease, pneumonia, pneumothorax , COPD, CHF, cardiac ischemia, pulmonary embolism, musculoskeletal, gastrointestinal, as well as others were entertained. Patient seen and evaluated at bedside. Patient w/ cough and fever. Productive cough. No h/o DVT/PE. Patient borderline tachycardic and low grad temp of 100. Patient w/o calf pain or LE swelling. Blood work obtained, CXR, and given trx's. Upon reassessment patient feeling improved. Patient given inhaler for home. WBC 15. CXR clear. Given productive cough, low grade temp and elevated WBC patient given Z pack for home. Patient not hypoxic and tachycardia resolved. Potentially PERC in for tachycardia but improved. Given infectious symptoms and Wells score only for tachycardia, less likely PE. BNP not elevated, no volume overload, CXR clear less likely CHF. Also EKG non ischemic and trop not elevated less likely ACS. Patient given f/u, d/c, and return instructions and believes suitable for d/c at this time. All questions answered, patient agreed w / POC and d/c'ed to home. Medication Reconcilliation Current Medication List: was personally reviewed by me Blood Pressure Screening Patient's blood pressure: Normal blood pressure Blood pressure disposition: Did not require urgent referral Impression Primary Impression: Acute bronchitis Additional Impression: Fever Scribe Attestation The scribe's documentation has been prepared under my direction and personally reviewed by me in its entirety. I confirm that the note above accurately reflects all work, treatment, procedures, and medical decision making performed by me. Departure Information Dispostion Home / Self-Care Prescriptions Azithromycin (Zithromax) 250 Mg Tab 250 MG PO DAILY for 4 Days, #4 TAB Prov: Jose Carlos Royal M.D. 07/28/17 Referrals Georges Sharma M.D. (PCP) Patient Instructions Bronchitis Acute, My [facility] Additional Instructions Please return to the emergency department if you have worsening or recurrent symptoms not amenable to at-home treatment. Please call for a follow-up appointment with her primary care physician. Please take your medications as prescribed. If you have other concerns and/or complaints please feel free to also call your primary care physician's office or return the ED for further evaluation, management, and treatment. You may take 800 mg Ibuprofen every 6 hours as needed for pain/fever with food unless told by your physician not to take NSAIDs. You may take tylenol 1000 mg every 6 hours as needed for pain/fever unless told by your physician to not take it or have liver problems. You may take motrin and tylenol separately or at the same time. Use your inhaler 2 puffs every 4 hours the first day, 2 puffs every 6 hours the second day, 1 puff every 4 hours the third day, and then 1 puff every 6 hours the fourth day. Use with a spacer. Take your medications as prescribed. If taking an antibiotic consider taking a probiotic and/or eating yogurt, but at the least, please take with food as it can cause upset stomach. You have been examined and treated today on an emergency basis only. This is not a substitute for, or an effort to provide, complete comprehensive medical care. It is impossible to recognize and treat all injuries or illnesses in a single emergency department visit. It is therefore important that you follow up closely with [facility], your PCP, and/or your specialist(s). Call as soon as possible for an appointment. Thank you for your time and consideration. I look forward to speaking with you again soon. Please don't hesitate to call us if you have any questions. Problem Qualifiers Primary Impression: Acute bronchitis Bronchitis organism: unspecified organism Qualified Codes: J20.9 - Acute bronchitis, unspecified Additional Impression: Fever Fever type: unspecified Qualified Codes: R50.9 - Fever, unspecified
[2017-07-28 21:19] LABS: BASO % 0.2 %; BASO ABS # 0.03 K/uL (0-0.2); EOS % 2.6 %; HEMATOCRIT 46.1 % (42-52); HEMOGLOBIN 16.5 g/dL (14.0-18.0); IG# 0.05 K/uL (0.00-0.02); LYMPH ABS # 3.38 K/uL (1.2-3.4); MEAN CELL VOLUME 87.5 fL (80-100); MEAN CORPUSCULAR HEMOGLOBIN 31.3 pg (25-34); MEAN CORPUSCULAR HGB CONC 35.8 g/dl (32-36); MEAN PLATELET VOLUME 9.6 fL (7.4-10.4); MONO % 8.4 %; NEUT % 66.5 %; NEUT ABS # 10.23 K/uL (1.4-6.5); PLATELET COUNT 170 K/uL (130-400); RED CELL DISTRIBUTION WIDTH CV 12.8 % (11.5-14.5); WHITE BLOOD COUNT 15.39 K/uL (4.8-10.8)
--- NOTE | 2017-07-28 21:28 | DIAGNOSTIC IMAGING REPORT ---
CHEST ONE VIEW PORTABLE HISTORY: 36 years-old Male EVALUATE RESPIRATORY DISTRESS.DYSPNEA acute respiratory distress COMPARISON: Chest radiograph 05/23/2013 TECHNIQUE: Portable AP view of the chest FINDINGS: Cardiomediastinal and hilar silhouettes are within normal limits. No pneumothorax, pleural effusion, focal airspace consolidation or overt pulmonary edema. Bones appear grossly intact. IMPRESSION: No acute process. The above report was generated using voice recognition software. It may contain grammatical, syntax or spelling errors. Electronically signed by: Aden Willams M.D. 07/28/2017 9:27 PM Dictated Date/Time: 07/28/2017 9:26 PM
[2017-07-28 21:29] LABS: INR 1.1 (0.9-1.1); PTT PATIENT 27.8 SECONDS (21.0-31.0)
[2017-07-28 21:44] LABS: ALBUMIN 4.2 gm/dl (3.4-5.0); ALT/SGPT 104 U/L (12-78); AST/SGOT 47 U/L (15-37); BLOOD UREA NITROGEN 14 mg/dl (7-18); CALCIUM 8.1 mg/dl (8.5-10.1); CARBON DIOXIDE 27 mmol/L (21-32); CREATININE 1.09 mg/dl (0.60-1.40); GLUCOSE 101 mg/dl (70-99); POTASSIUM 3.9 mmol/L (3.5-5.1); SODIUM 138 mmol/L (136-145)
[2017-07-28 21:50] LABS: ALKALINE PHOSPHATASE 65 U/L (45-117); TOTAL PROTEIN 8.1 gm/dl (6.4-8.2)
[2017-07-28] MEDS ORDERED: ALBUTEROL HFA 8 GM INHALER INH ONE (22:15)
[2017-07-28 22:16] VITALS: BP 120/72; PULSE 84; O2SAT 93
[2017-07-28] MEDS ORDERED: AZIT250T PO (22:28)
[2017-07-28] MEDS ORDERED: AZITHROMYCIN 250 MG TAB PO ONE (22:30)
== END 2017-07-28 22:35 | disposition home or self-care (01) ==
LOC: C.EDB 19:50 → C.EDC 22:35
DX: J20.9 Acute bronchitis, unspecified (principal); R50.9 Fever, unspecified; J45.909 Unspecified asthma, uncomplicated; F41.9 Anxiety disorder, unspecified; Z87.442 Personal history of urinary calculi; Z87.01 Personal history of pneumonia (recurrent); Z88.1 Allergy status to other antibiotic agents; Z83.79 Family history of other diseases of the digestive system; Z82.49 Family history of ischemic heart disease and other diseases of the circulatory system; Z79.899 Other long term (current) drug therapy